=== PATIENT | male | born 1985 | race Hispanic/Latino ===

== ENCOUNTER 2024-01-07 16:43 | Emergency (ER) | payer SELFPAY ==
[~2024-01-07] VITALS: Ht 165.1 cm; Wt 104.3 kg
[2024-01-07] VITALS (8 sets, daily range): BP systolic 120–135; BP diastolic 77–102
[~2024-01-07 16:43] MED LIST: AMOXICILLIN500 MG PO; NO
[2024-01-07] MEDS ORDERED: LACTATED RINGER'S 1,000 ML IV ONE (17:40)
[2024-01-07] MEDS ORDERED: KETOROLAC TROMETHAMINE 30 MG/ML SDV IV ONE (17:50)
[2024-01-07] MEDS ORDERED: METOCLOPRAMIDE HCL 10 MG/2 ML SDV IV ONE (17:50)
[2024-01-07 18:07] LABS: BASO% 0.4 % (0-3); EOS% 3.6 % (0-8); HEMATOCRIT 45.7 % (39.0-50.0); HEMOGLOBIN 15.5 g/dl (14.0-18.0); IMMATURE GRANULOCYTES 0.3 % (0.0-5.0); LYMPH% 20.6 % (15-41); MEAN CORPUSCULAR HGB 32.9 pG CALC (26.0-32.0); MEAN CORPUSCULAR HGB CONC 33.9 g/dL CAL (32.0-36.0); MONO% 12.6 % (2-13); NEUT# 4.53 thou/uL (1.82-7.42); NEUT% 62.5 % (42-76); RED BLOOD COUNT 4.71 mill/uL (4.70-6.10); RED CELL DISTRI WIDTH 12.3 % (11.5-15.5)
[2024-01-07 18:30] LABS: ALBUMIN 5.1 g/dL (3.2-5.0); BILIRUBIN, TOTAL 0.4 mg/dL (0.2-1.3); CREATININE 1.2 mg/dL (0.7-1.3); POTASSIUM 3.9 mmol/l (3.5-5.1); TOTAL PROTEIN 8.7 g/dL (6.3-8.2)
[2024-01-07] MEDS ORDERED: MOTRIN800 MG PO (18:48)
[2024-01-07] MEDS ORDERED: REGLAN10 MG PO (18:48)
== END 2024-01-07 19:04 | disposition home or self-care (01) | DRG 923 ==
LOC: ED 16:43
PROVIDERS: Nurse Practitioner
DX: T67.5XXA Heat exhaustion, unspecified, initial encounter (principal); R51.9 Headache, unspecified; F17.200 Nicotine dependence, unspecified, uncomplicated; X30.XXXA Exposure to excessive natural heat, initial encounter; Y99.0 Civilian activity done for income or pay; Z20.822 Contact with and (suspected) exposure to COVID-19